=== PATIENT | female | born 1980 | race Caucasian/White ===

== ENCOUNTER 2019-11-01 05:23 | Inpatient (IN) | payer OTHER ==
[~2019-11-01] VITALS: Ht 172.7 cm; Wt 2.7 kg
[2019-11-01] MEDS ORDERED: PRENATAL TABLE1 EACH PO (06:54)
[2019-11-01] MEDS ORDERED: IRON325 MG PO (06:55)
[2019-11-01] MEDS ORDERED: TERBUTALINE SU2.5 MG PO (06:57)
[2019-11-01] MEDS ORDERED: LOVENOX30 MG/0.3 SUBCUTANEO (06:59)
[2019-11-01] MEDS ORDERED: NIFEDIPINE20 MG PO (06:59)
== END 2019-11-04 11:16 | disposition home or self-care (01) | DRG 785 ==
LOC: LDR 05:23 → O/R 05:23 → OB/GYN 10:23
PROVIDERS: ADMIT Specialist
PROC: 0UL70ZZ Occlusion of Bilateral Fallopian Tubes, Open Approach (ICD-10-PCS; 2019-11-01)
PROC: 4A1HXCZ Monitoring of Products of Conception, Cardiac Rate, External Approach (ICD-10-PCS; 2019-11-01)
PROC: 10D00Z1 Extraction of Products of Conception, Low, Open Approach (ICD-10-PCS; principal; 2019-11-01 07:00)
DX: O82 Encounter for cesarean delivery without indication (principal); Z3A.38 38 weeks gestation of pregnancy; Z37.0 Single live birth; Z30.2 Encounter for sterilization